=== PATIENT | female | born 1980 | race Caucasian/White ===

== ENCOUNTER → 2017-04-05 | Day surgery (SDC) | payer BC ==
[~2017-04-05] MED LIST: HYDROmorphone 0.5 MG/0.5 ML Syringe IVPUSH ONE; HYDROmorphone 0.5 MG/0.5 ML Syringe IVPUSH PRN; Ketorolac 30 MG/ML SDV ONE; Lactated Ringers 1,000 ML IV ONE; Lactated Ringers 1,000 ML ONE; Lidocaine 1% 6 ML ONE; Metoclopramide 10 MG/2 ML SDV IVPUSH ONE; Midazolam 1 MG/ML 2 ML SDV ONE; Ondansetron 4 MG/2 ML SDV IVPUSH PRN; Ondansetron 4 MG/2 ML SDV ONE; Propofol 200 MG/20 ML SDV ONE; Scopolamine 1.5 MG Transdermal Patch TRDERM ONE; Sodium Chloride 0.9% 1,000 ML IV SCH; Succinylcholine 200 MG/10 ML MDV ONE; ceFAZolin 2 GM in Premix Bag 1 BAG IV ONE; diphenhydrAMINE 50 MG/ML SDV IVPUSH PRN; fentaNYL 100 MCG/2 ML SDV IVPUSH PRN; fentaNYL 100 MCG/2 ML SDV ONE
--- NOTE | 2017-04-05 20:17 | EDM.PDOC ---
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 Seen Dr Ricky vasquez pm about 1630hrs. U/S revealed an intrauterine gestation with a low heart rate of 48? Since leaving the office the bleeding has increased agood deal and she believes she has passed some tissue and gestatinal sac? Has soaked a pad per hour for the last 3 hrs.with associated cramps --11/07. She is 5 P2. 2 previous miscarriages. No D&C`s. Started spotting per vagina 3 days ago.Heavier flow started about 1430 today. Onset: Today (Heavy flow per vagina started about 1430 today. ), Other (started spotting per vagina about 4 days ago. ) Onset Date: 04/05/17 Onset Time: 14:30 Duration: Hour(s): Location: Reports: Other (bleeding per vagina. ) Quality: Reports: Other (menstral cramps. ) Severity: Moderate Improves with: Reports: None Worsens with: Reports: None Context: Denies: Activity, Exercise, Lifting, Sick Contact, Trauma, Other Associated Symptoms: Reports: Malaise. 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 Prescribed a week ago, will continue to take after . Other Respiratory History: Pneumonia 2 weeks ago Other Genitourinary History: Kidney infection after gall bladder removal. Other OB/BYN History: x1 Other Musculoskeletal History: Rib on right side about 2 weeks ago Social & Family History - Tobacco Use Smoking Status *Q: Never Smoker - Recreational Drug Use Recreational Drug Use: No - Living Situation & Occupation Living situation: Reports: Occupation: Employed ED ROS GENERAL - Review of Systems Review Of Systems: See Below Constitutional: Denies: Fever, Chills, Malaise, Weakness, Fatigue, Decreased Appetite, Weight Loss HEENT: Reports: No Symptoms Respiratory: Reports: No Symptoms Cardiovascular: Reports: No Symptoms Endocrine: Reports: No Symptoms GI/Abdominal: Reports: Abdominal Pain (mentral cramps ) : Reports: Other ( heavy bleeding per vagina. ) Musculoskeletal: Reports: No Symptoms Skin: Reports: No Symptoms Neurological: Reports: No Symptoms Psychiatric: Reports: No Symptoms Hematologic/Lymphatic: Reports: No Symptoms Immunologic: Reports: No Symptoms ED EXAM - Physical Exam Exam: See Below Exam Limited By: No Limitations General Appearance: Alert, Anxious, Moderate Distress (in moderate pain 6/10 ) Eye Exam: Bilateral Eye: Normal Inspection Respiratory/Chest: No Respiratory Distress, Lungs Clear, Normal Breath Sounds, No Accessory Muscle Use, Chest Non-Tender Cardiovascular: Normal Peripheral Pulses, Regular Rate, Rhythm, No Edema, No Gallop, No Murmur, Tachycardia ( at rest. ) GI/Abdominal Exam: Normal Bowel Sounds, Soft, Non-Tender, No Organomegaly, No Abnormal Bruit, No Mass, Pelvis Stable, Other ( previous cholecystectomy. ) (Female) Exam: Cervical Dilatation Heart Tones: Not Young Back Exam: Normal Inspection, Full Range of Motion Extremities: Normal Inspection, Normal Range of Motion, Non-Tender, Normal Capillary Refill Neurological: Alert, Oriented, CN II-XII Intact, Normal Gait Psychiatric: Normal Affect, Normal Mood Skin Exam: Warm, Dry, Intact, Normal Color, No Rash Course - Vital Signs Last Recorded V/S: Last Vital Signs Temp 36.1 C 04/05/17 23:22 Pulse 108 H 04/05/17 23:22 Resp 18 04/05/17 23:22 BP 153/104 H 04/05/17 23:22 Pulse Ox 100 04/05/17 23:22 - Orders/Labs/Meds Orders: Active Orders 24 hr Category Date Time Status Admission Status [Patient Status] [ADT] Routine ADT 04/05/17 23:21 Ordered Antiembolic Devices [RC] PER UNIT ROUTINE Care 04/05/17 22:52 Active Verify Patient Consent Obtain [RC] ASDIRECTED Care 04/05/17 22:51 Active OB Transvaginal [US] Stat Exams 04/05/17 20:26 Taken Lactated Ringers [Ringers, Lactated] 1,000 ml Med 04/05/17 22:49 Active IV .BOLUS Remove Patch Med 04/08/17 23:15 Once 1 ea TRDERM ONETIME ONE Sodium Chloride 0.9% [Normal Saline] 1,000 ml Med 04/05/17 20:30 Active IV ASDIRECTED Schedule Procedure [COMM] Stat Oth 04/05/17 22:50 Ordered Sequential Compression Device [OM.PC] Routine Oth 04/05/17 22:52 Ordered Medication Orders Sodium Chloride (Normal Saline) 1,000 mls @ 150 mls/hr IV ASDIRECTED [facility] Last Admin: 04/05/17 20:56 Dose: 150 mls/hr Lactated Ringer's (Ringers, Lactated) 1,000 mls @ 999 mls/hr IV .BOLUS ONE Stop: 04/05/17 23:49 Last Admin: 04/05/17 22:55 Dose: 999 mls/hr Miscellaneous Information (Remove Patch) 1 ea TRDERM ONETIME ONE Stop: 04/08/17 23:16 Labs: Laboratory Tests 04/05/17 04/05/17 04/05/17 Range/Units 20:32 20:32 20:32 WBC 5.98 (3.98-10.04) K/mm3 RBC 4.96 (3.98-5.22) M/mm3 Hgb 14.3 (11.2-15.7) gm/L Hct 42.9 (34.1-44.9) % MCV 86.5 (79.4-94.8) fl MCH 28.8 (25.6-32.2) pg MCHC 33.3 (32.2-35.5) g/dl RDW Std Deviation 42.5 (36.4-46.3) fL Plt Count 227 (182-369) K/mm3 MPV 9.4 (9.4-12.3) fl Neutrophils % (Manual) 66 H (40-60) % Band Neutrophils % 0 (0-10) % Lymphocytes % (Manual) 31 (20-40) % Atypical Lymphs % 0 % Monocytes % (Manual) 3 (2-10) % Eosinophils % (Manual) 0 L (0.7-5.8) % Basophils % (Manual) 0 L (0.1-1.2) Platelet Estimate Adequate RBC Morph Comment Normal PT (8.0-13.0) SECONDS INR APTT (22-36) SECONDS Sodium 137 (136-145) mEq/L Potassium 3.6 (3.5-5.1) mEq/L Chloride 101 (98-107) mEq/L Carbon Dioxide 24 (21-32) mEq/L Anion Gap 15.6 H (5-15) BUN 13 (7-18) mg/dL Creatinine 0.9 (0.55-1.02) mg/dL Est Cr Clr Drug Dosing TNP Estimated GFR (MDRD) > 60 (>60) mL/min BUN/Creatinine Ratio 14.4 (14-18) Glucose 227 H (74-106) mg/dL Calcium 9.4 (8.5-10.1) mg/dL Total Bilirubin 0.5 (0.2-1.0) mg/dL AST 81 H (15-37) U/L ALT 129 H (14-59) U/L Alkaline Phosphatase 71 (46-116) U/L Total Protein 8.1 (6.4-8.2) g/dl Albumin 3.8 (3.4-5.0) g/dl Globulin 4.3 gm/dL Albumin/Globulin Ratio 0.9 L (1-2) HCG, Quant 67341.0 mIU/mL Blood Type A POSITIVE 04/05/17 Range/Units 20:32 WBC (3.98-10.04) K/mm3 RBC (3.98-5.22) M/mm3 Hgb (11.2-15.7) gm/L Hct (34.1-44.9) % MCV (79.4-94.8) fl MCH (25.6-32.2) pg MCHC (32.2-35.5) g/dl RDW Std Deviation (36.4-46.3) fL Plt Count (182-369) K/mm3 MPV (9.4-12.3) fl Neutrophils % (Manual) (40-60) % Band Neutrophils % (0-10) % Lymphocytes % (Manual) (20-40) % Atypical Lymphs % % Monocytes % (Manual) (2-10) % Eosinophils % (Manual) (0.7-5.8) % Basophils % (Manual) (0.1-1.2) Platelet Estimate RBC Morph Comment PT 10.5 (8.0-13.0) SECONDS INR 0.97 APTT 24 (22-36) SECONDS Sodium (136-145) mEq/L Potassium (3.5-5.1) mEq/L Chloride (98-107) mEq/L Carbon Dioxide (21-32) mEq/L Anion Gap (5-15) BUN (7-18) mg/dL Creatinine (0.55-1.02) mg/dL Est Cr Clr Drug Dosing Estimated GFR (MDRD) (>60) mL/min BUN/Creatinine Ratio (14-18) Glucose (74-106) mg/dL Calcium (8.5-10.1) mg/dL Total Bilirubin (0.2-1.0) mg/dL AST (15-37) U/L ALT (14-59) U/L Alkaline Phosphatase (46-116) U/L Total Protein (6.4-8.2) g/dl Albumin (3.4-5.0) g/dl Globulin gm/dL Albumin/Globulin Ratio (1-2) HCG, Quant mIU/mL Blood Type Meds: Medications Generic Name Dose Route Start Last Admin Trade Name Freq PRN Reason Stop Dose Admin Sodium Chloride 1,000 mls @ 150 mls/hr 04/05/17 20:30 04/05/17 20:56 Normal Saline IV 150 mls/hr ASDIRECTED NILDA Administration Lactated Ringer's 1,000 mls @ 999 mls/hr 04/05/17 22:49 04/05/17 22:55 Ringers, Lactated IV 04/05/17 23:49 999 mls/hr .BOLUS ONE Administration Miscellaneous Information 1 ea 04/08/17 23:15 Remove Patch TRDERM 04/08/17 23:16 ONETIME ONE Discontinued Medications Generic Name Dose Route Start Last Admin Trade Name Donavon PRN Reason Stop Dose Admin Hydromorphone HCl 0.5 mg 04/05/17 20:25 04/05/17 20:43 Dilaudid IVPUSH 04/05/17 20:26 0.5 mg ONETIME ONE Administration Cefazolin Sodium/Dextrose 2 gm 50 mls @ 100 mls/hr 04/05/17 22:52 04/05/17 23 :20 / Premix IV 04/05/17 23:21 100 mls/hr ONETIME ONE Administration Metoclopramide HCl 7.5 mg 04/05/17 20:25 04/05/17 20:44 Reglan IVPUSH 04/05/17 20:26 7.5 mg ONETIME ONE Administration Scopolamine 1.5 mg 04/05/17 23:15 Transderm-Scop TRDERM 04/05/17 23:16 ONETIME ONE - Radiology Interpretation Free Text/Narrative:: 36 year old female presents to the ED with heavy vaginal bleeding --known to be 6 weeks gestation. Seen in clinic earlier this pm.and identified to have an intrauterine with a very low heart rate of 48. Since leaving the clinic flow has increased with suspect passage of tissue and perhaps a gestational sac. Soaking a pad per hr for the last three consecutive hours. Associated cramping. last ate at 1300hrs today. Plan: transvaginal U/S to see if any tissue remains plus labs to check HCG levels and clotting times and blood type and screen. - Re-Assessments/Exams Free Text/Narrative Re-Assessment/Exam: 04/05/17 22:17a Labs reveal a white count of 5.98 with a normal neutrophil count at 66% and no bands. Hemoglobin is 14.3 hematocrit of 42.9. PT is 10.5 INR 0.97 PTT is 24. Sodium 137 potassium 3.6. Chloride 101 bicarbonate 24. And a gap is 15.6. B1 is 13 creatinine is 0.9. GFR is greater than 60. Glucose is elevated at 227. This is suspicious that she may be a type II diabetic. AST is 81 . ALT is 129. HCG quantitative is 10,870. Blood type is A+. She is change pads twice since she been in the ED. This means that she soaked a pad per hour for 4 consecutive hours. The transabdominal ultrasound revealed a crenated glob in the intrauterine cavity which did not resemble any Citroma the gestational sac and there certainly no evidence of heart beat. This indicates an incomplete miscarriage. Therefore discussed case with validation consultant content designer Dr. Clark and he will see the patient in the ED with a view to possible D&C. Her coags are normal at this time. However I have a suspicion she is not coagulating normally.. 04/05/17 23:00: Dr. Clark has seen her in consultation with the view to take her to the OR for a D&C. Is there is still tissue in the cervical canal. 04/05/17 23:24 04/05/17 23:24 Departure - Departure Time of Disposition: 23:23 Disposition: DC/Tfer to [facility] Access [facility] Condition: Fair Clinical Impression: Incomplete - Discharge Information - My Orders Last 24 Hours: My Active Orders 04/05/17 20:26 OB Transvaginal [US] Stat 04/05/17 20:30 Sodium Chloride 0.9% [Normal Saline] 1,000 ml IV ASDIRECTED 04/05/17 23:21 Admission Status [Patient Status] [ADT] Routine - Assessment/Plan Last 24 Hours: My Active Orders 04/05/17 20:26 OB Transvaginal [US] Stat 04/05/17 20:30 Sodium Chloride 0.9% [Normal Saline] 1,000 ml IV ASDIRECTED 04/05/17 23:21 Admission Status [Patient Status] [ADT] Routine
--- NOTE | 2017-04-05 23:03 | PCM.LDHP ---
L&D History of Present Illness - General Date of Service: 04/05/17 Admit Problem/Dx: Admission Diagnosis/Problem Admission Diagnosis/Problem 04/05/17 22:55 36-year-old 5 para 1132 with significant vaginal bleeding and incomplete spontaneous miscarriage Source of Information: Patient History Limitations: Reports: No Limitations - History of Present Illness Introduction:: Rina is a 36-year-old 5 para 1132 white female whose been seen over the last week in clinic per Dr. Jose Antonio Rivera. She's been followed closely and has had now for ultrasounds for evaluation of the and recently bleeding in . Ultrasound earlier today showed an intrauterine gestation with a heartbeat in the 49 bpm range. Shortly thereafter patient began bleeding rather heavily, called one of the nursees from the clinic for advice and was told come into the emergency room. She was seen by Dr. Brown at which time she was having significant clot passage and active bleeding. My evaluation shows what appears to be dilated cervix with tissue protruding from the cervix on digital exam. Moderate amount of blood in the vagina and on the pad. Cramping at the present time. His consistent with an incomplete miscarriage. Ultrasound performed this evening shows no normal gestational sac within the uterus. This could reflect an incomplete or sooner gestational reaction of ectopic . There is small amount of free fluid which is physiologic in nature. No adnexal masses are noted. Patient does not have any significant adnexal pain only cramping pain. MANAGER BODY history 5 para 1132 with 3 spontaneous abortions including the present 1 along with one delivery induced because of preeclampsia at 36 weeks and one full-term delivery. Last menstrual is uncertain. She is dated with this by an ultrasound last week which places her at 6-5/7 weeks today. Results sounds are shown heartbeat today's 49 BPM. SOME BLEEDING WAS NOTED ON EVALUATION TODAY. NO STDS NOTED IN THE PAST. PAST MEDICAL HISTORY: 1. NORMAL SPONTANEOUS VAGINAL DELIVERY 2 2. SPONTANEOUS 3 3. PREECLAMPSIA WITH FIRST . 4. HYPERTENSION ON ATENOLOL PAST SURGICAL HISTORY: 1. LAPAROSCOPIC CHOLECYSTECTOMY 2. SURGERY TO REMOVE AN "extra bone" Allergies: Some type of hypertension medication that she does not remember Medications: 1. Atenolol daily 2. vitamins daily Family history: mother is alive but had delivered a baby with heart defect that . She has MS, diabetes, high blood pressure, heart disease. Father is alive and well but smokes and drinks in excess. 3 sisters 2 with lupus and 1 with celiac disease. No brothers. No anesthesia or bleeding or blood clotting problems noted in the family. 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 Denies any significant loss of alcohol, drugs or tobacco. Review of systems: In general patient is anxious about the bleeding and is feeling cramping. Skin: Negative Lungs: No infectious symptoms or shortness of breath Cardiovascular: No exercise intolerance or chest pain Breasts: Negative. GI: Negative : Bleeding vaginally and cramping like menstrual cramps. Passage of tissue and possibly . Patient reports some clear tissue passed earlier. Extremities: Negative Neurological system: Negative Physical exam: Vital signs are stable. Patient is afebrile. Skin is warm dry without lesions. HEENT, neck and back within normal limits Lungs are clear with good breath sounds in all lung flores. Cardiovascular exam shows regular rate and rhythm without murmurs. Breast exam is deferred. Abdomen is obese, soft, nontender with positive bowel sounds noted. No significant pain is noted on exam. No inguinal lymphadenopathy or hernias are noted. Genital exam. Bimanual shows blood on pad below the patient approximately 30 40 mL, blood in the vaginal vault and on bimanual exam palpated is tissue in the cervical os. Most probably products of conception. Hard to determine patient's uterine size because of body habitus. Extremities and neurological exam is grossly within normal limits. Pain Score: 6 - Related Data Allergies/Adverse Reactions: Allergies Allergy/AdvReac Type Severity Reaction Status Date / Time No Known Allergies Allergy Verified 04/05/17 20:21 Home Medications: Home Meds Aspirin [Halfprin] 1 tab PO DAILY 04/05/17 [History] Atenolol [Atenolol] 1 tab PO DAILY 04/05/17 [History] Cetirizine [ZyrTEC] 1 tab PO DAILY 04/05/17 [History] Folic Acid 1 tab PO DAILY 04/05/17 [History] metFORMIN HCl [Metformin HCl] 1 tab PO DAILY 04/05/17 [History] Past Medical History Cardiovascular History: Reports: Hypertension Other Cardiovascular History: High during preganancy. Prescribed a week ago, will continue to take after . Other Respiratory History: Pneumonia 2 weeks ago Other Genitourinary History: Kidney infection after gall bladder removal. MANAGER BODY History: Reports: Dysfunctional Uterine Bleeding, Other OB/BYN History: x1 Musculoskeletal History: Reports: Fracture Other Musculoskeletal History: Rib on right side about 2 weeks ago - Past Surgical History Other Neurological Surgeries/Procedures: "set block in back where they numbed my nerve." Other Musculoskeletal Surgeries/Procedures:: ankle surgery Social & Family History - Family History Family Medical History: Noncontributory - Tobacco Use Smoking Status *Q: Never Smoker - Recreational Drug Use Recreational Drug Use: No - Living Situation & Occupation Living situation: Reports: Occupation: Employed H&P Review of Systems - Review of Systems: Review Of Systems: See Below L&D Exam - Exam Exam: See Below - Vital Signs Vital Signs: Last Vital Signs Temp 36.1 C 04/05/17 20:15 Pulse 108 H 04/05/17 20:15 Resp 18 04/05/17 20:15 BP 153/104 H 04/05/17 20:15 Pulse Ox 100 04/05/17 20:15 - OB Specific Heart Tones: Not Elliott - Patient Data Lab Results Last 24 hrs: Laboratory Results - last 24 hr 04/05/17 04/05/17 04/05/17 Range/Units 20:32 20:32 20:32 WBC 5.98 (3.98-10.04) K/mm3 RBC 4.96 (3.98-5.22) M/mm3 Hgb 14.3 (11.2-15.7) gm/L Hct 42.9 (34.1-44.9) % MCV 86.5 (79.4-94.8) fl MCH 28.8 (25.6-32.2) pg MCHC 33.3 (32.2-35.5) g/dl RDW Std Deviation 42.5 (36.4-46.3) fL Plt Count 227 (182-369) K/mm3 MPV 9.4 (9.4-12.3) fl Neutrophils % (Manual) 66 H (40-60) % Band Neutrophils % 0 (0-10) % Lymphocytes % (Manual) 31 (20-40) % Atypical Lymphs % 0 % Monocytes % (Manual) 3 (2-10) % Eosinophils % (Manual) 0 L (0.7-5.8) % Basophils % (Manual) 0 L (0.1-1.2) Platelet Estimate Adequate RBC Morph Comment Normal PT (8.0-13.0) SECONDS INR APTT (22-36) SECONDS Sodium 137 (136-145) mEq/L Potassium 3.6 (3.5-5.1) mEq/L Chloride 101 (98-107) mEq/L Carbon Dioxide 24 (21-32) mEq/L Anion Gap 15.6 H (5-15) BUN 13 (7-18) mg/dL Creatinine 0.9 (0.55-1.02) mg/dL Est Cr Clr Drug Dosing TNP Estimated GFR (MDRD) > 60 (>60) mL/min BUN/Creatinine Ratio 14.4 (14-18) Glucose 227 H (74-106) mg/dL Calcium 9.4 (8.5-10.1) mg/dL Total Bilirubin 0.5 (0.2-1.0) mg/dL AST 81 H (15-37) U/L ALT 129 H (14-59) U/L Alkaline Phosphatase 71 (46-116) U/L Total Protein 8.1 (6.4-8.2) g/dl Albumin 3.8 (3.4-5.0) g/dl Globulin 4.3 gm/dL Albumin/Globulin Ratio 0.9 L (1-2) HCG, Quant 96226.0 mIU/mL Blood Type A POSITIVE 04/05/17 Range/Units 20:32 WBC (3.98-10.04) K/mm3 RBC (3.98-5.22) M/mm3 Hgb (11.2-15.7) gm/L Hct (34.1-44.9) % MCV (79.4-94.8) fl MCH (25.6-32.2) pg MCHC (32.2-35.5) g/dl RDW Std Deviation (36.4-46.3) fL Plt Count (182-369) K/mm3 MPV (9.4-12.3) fl Neutrophils % (Manual) (40-60) % Band Neutrophils % (0-10) % Lymphocytes % (Manual) (20-40) % Atypical Lymphs % % Monocytes % (Manual) (2-10) % Eosinophils % (Manual) (0.7-5.8) % Basophils % (Manual) (0.1-1.2) Platelet Estimate RBC Morph Comment PT 10.5 (8.0-13.0) SECONDS INR 0.97 APTT 24 (22-36) SECONDS Sodium (136-145) mEq/L Potassium (3.5-5.1) mEq/L Chloride (98-107) mEq/L Carbon Dioxide (21-32) mEq/L Anion Gap (5-15) BUN (7-18) mg/dL Creatinine (0.55-1.02) mg/dL Est Cr Clr Drug Dosing Estimated GFR (MDRD) (>60) mL/min BUN/Creatinine Ratio (14-18) Glucose (74-106) mg/dL Calcium (8.5-10.1) mg/dL Total Bilirubin (0.2-1.0) mg/dL AST (15-37) U/L ALT (14-59) U/L Alkaline Phosphatase (46-116) U/L Total Protein (6.4-8.2) g/dl Albumin (3.4-5.0) g/dl Globulin gm/dL Albumin/Globulin Ratio (1-2) HCG, Quant mIU/mL Blood Type Result Diagrams: 04/05/17 20:32 04/05/17 20:32 Problem List Initiated/Reviewed/Updated: Yes Orders Last 24hrs: Active Orders 24 hr Category Date Time Status Antiembolic Devices [RC] PER UNIT ROUTINE Care 04/05/17 22:52 Ordered Verify Patient Consent Obtain [RC] ASDIRECTED Care 04/05/17 22:51 Ordered OB Transvaginal [US] Stat Exams 04/05/17 20:26 Taken Lactated Ringers [Ringers, Lactated] 1,000 ml Med 04/05/17 22:49 Active IV .BOLUS Sodium Chloride 0.9% [Normal Saline] 1,000 ml Med 04/05/17 20:30 Active IV ASDIRECTED ceFAZolin [Ancef] 2 gm Med 04/05/17 22:52 Ordered Premix Bag 1 bag IV ONETIME Schedule Procedure [COMM] Stat Oth 04/05/17 22:50 Ordered Sequential Compression Device [OM.PC] Routine Oth 04/05/17 22:52 Ordered Medication Orders Sodium Chloride (Normal Saline) 1,000 mls @ 150 mls/hr IV ASDIRECTED [facility] Last Admin: 04/05/17 20:56 Dose: 150 mls/hr Lactated Ringer's (Ringers, Lactated) 1,000 mls @ 999 mls/hr IV .BOLUS ONE Stop: 04/05/17 23:49 Cefazolin Sodium/Dextrose 2 gm (/ Premix) 50 mls @ 100 mls/hr IV ONETIME ONE Stop: 04/05/17 23:21 Assessment/Plan Comment:: Laboratory testing shows hemoglobin 14.3, hematocrit 42.9, white count 5.98, platelets 227. PT is normal at 10.5. INR is normal at 0.97. CO2 is 24. Potassium is 3.6. Sodium is 137. Chloride is 101. Glucose is 227. AST is elevated at 81. LT is elevated at 129. Assessment: 1. 6-6/7 week intrauterine with significant bleeding and findings consistent with incomplete miscarriage 2. Hypertension on atenolol 3. Blood is A+ Plan: 1. Dilation and suction curettage-procedure, risks, benefits, alternatives of care including use of Cytotec to enhance the possibility of passage of tissue all discussed with patient. She appears to understand and wishes to proceed with dilation and suction curettage. 2. SCDs 3. Ancef 2 g IV preop.
--- NOTE | 2017-04-05 23:07 | PCM.PREANE ---
Preanesthetic Assessment - Anesthesia/Transfusion/Family Hx Anesthesia History: Prior Anesthesia Without Reaction Type of Anesthesia Reaction: Excessive Nausea/Vomiting Family History of Anesthesia Reaction: No Transfusion History: No Prior Transfusion(s) Intubation History: Unknown - Review of Systems General: Fatigue, Appetite Pulmonary: No Symptoms Cardiovascular: No Symptoms (HTN), Lightheadedness Gastrointestinal: No Symptoms (GERD), Diarrhea, Nausea Neurological: No Symptoms (motion sickness) Other: Reports: Diabetes (Type II newly diagnosed), Sinus Problem (seasonal allergies) - Physical Assessment NPO Status Date: 04/05/17 NPO Status Time: 13:00 Pulse: 108 O2 Sat by Pulse Oximetry: 100 Respiratory Rate: 18 Blood Pressure: 153/104 Temperature: 36.1 C Vital Signs: Last Vital Signs Temp 36.1 C 04/05/17 20:15 Pulse 108 H 04/05/17 20:15 Resp 18 04/05/17 20:15 BP 153/104 H 04/05/17 20:15 Pulse Ox 100 04/05/17 20:15 Height: 1.6 m Weight: 117.934 kg ASA Class: 2E Mental Status: Alert & Oriented x3 Airway Class: Mallampati = 2 Dentition: Reports: Normal Dentition, Caries Thyro-Mental Finger Breadths: 3 Mouth Opening Finger Breadths: 3 ROM/Head Extension: Full Lungs: Clear to Auscultation, Normal Respiratory Effort Cardiovascular: Regular Rate, Regular Rhythm, No Murmurs - Lab Values: Laboratory Last Values WBC 5.98 K/mm3 (3.98-10.04) 04/05/17 20:32 RBC 4.96 M/mm3 (3.98-5.22) 04/05/17 20:32 Hgb 14.3 gm/L (11.2-15.7) 04/05/17 20:32 Hct 42.9 % (34.1-44.9) 04/05/17 20:32 MCV 86.5 fl (79.4-94.8) 04/05/17 20:32 MCH 28.8 pg (25.6-32.2) 04/05/17 20:32 MCHC 33.3 g/dl (32.2-35.5) 04/05/17 20:32 RDW Std Deviation 42.5 fL (36.4-46.3) 04/05/17 20:32 Plt Count 227 K/mm3 (182-369) 04/05/17 20:32 MPV 9.4 fl (9.4-12.3) 04/05/17 20:32 Neutrophils % (Manual) 66 % (40-60) H 04/05/17 20:32 Band Neutrophils % 0 % (0-10) 04/05/17 20:32 Lymphocytes % (Manual) 31 % (20-40) 04/05/17 20:32 Atypical Lymphs % 0 % 04/05/17 20:32 Monocytes % (Manual) 3 % (2-10) 04/05/17 20:32 Eosinophils % (Manual) 0 % (0.7-5.8) L 04/05/17 20:32 Basophils % (Manual) 0 (0.1-1.2) L 04/05/17 20:32 Platelet Estimate Adequate 04/05/17 20:32 RBC Morph Comment Normal 04/05/17 20:32 PT 10.5 SECONDS (8.0-13.0) 04/05/17 20:32 INR 0.97 04/05/17 20:32 APTT 24 SECONDS (22-36) 04/05/17 20:32 Sodium 137 mEq/L (136-145) 04/05/17 20:32 Potassium 3.6 mEq/L (3.5-5.1) 04/05/17 20:32 Chloride 101 mEq/L (98-107) 04/05/17 20:32 Carbon Dioxide 24 mEq/L (21-32) 04/05/17 20:32 Anion Gap 15.6 (5-15) H 04/05/17 20:32 BUN 13 mg/dL (7-18) 04/05/17 20:32 Creatinine 0.9 mg/dL (0.55-1.02) 04/05/17 20:32 Est Cr Clr Drug Dosing TNP 04/05/17 20:32 Estimated GFR (MDRD) > 60 mL/min (>60) 04/05/17 20:32 BUN/Creatinine Ratio 14.4 (14-18) 04/05/17 20:32 Glucose 227 mg/dL (74-106) H 04/05/17 20:32 Calcium 9.4 mg/dL (8.5-10.1) 04/05/17 20:32 Total Bilirubin 0.5 mg/dL (0.2-1.0) 04/05/17 20:32 AST 81 U/L (15-37) H 04/05/17 20:32 ALT 129 U/L (14-59) H 04/05/17 20:32 Alkaline Phosphatase 71 U/L (46-116) 04/05/17 20:32 Total Protein 8.1 g/dl (6.4-8.2) 04/05/17 20:32 Albumin 3.8 g/dl (3.4-5.0) 04/05/17 20:32 Globulin 4.3 gm/dL 04/05/17 20:32 Albumin/Globulin Ratio 0.9 (1-2) L 04/05/17 20:32 HCG, Quant 30872.0 mIU/mL 04/05/17 20:32 Blood Type A POSITIVE 04/05/17 20:32 Above lab values noted and reviewed and within acceptable ranges to proceed with scheduled procedure. - Allergies Allergies/Adverse Reactions: Allergies Allergy/AdvReac Type Severity Reaction Status Date / Time No Known Allergies Allergy Verified 04/05/17 20:21 - Anesthesia Plan Pre-Op Medication Ordered: Beta Kareem Beta Kareem: Atenolol Med Last Dose Date: 04/04/17 Med Last Dose Time: 23:30 - Acknowledgements Anesthesia Type Planned: General Anesthesia Pt an Appropriate Candidate for the Planned Anesthesia: Yes Alternatives and Risks of Anesthesia Discussed w Pt/Guardian: Yes Pt/Guardian Understands and Agrees with Anesthesia Plan: Yes PreAnesthesia Questionnaire Cardiovascular History: Reports: Hypertension Other Cardiovascular History: High during preganancy. Prescribed a week ago, will continue to take after . Other Respiratory History: Pneumonia 2 weeks ago Other Genitourinary History: Kidney infection after gall bladder removal. PATIENT CARE MANAGER History: Reports: Dysfunctional Uterine Bleeding, Other OB/BYN History: x1 Musculoskeletal History: Reports: Fracture Other Musculoskeletal History: Rib on right side about 2 weeks ago - Past Surgical History Other Neurological Surgeries/Procedures: "set block in back where they numbed my nerve." Other Musculoskeletal Surgeries/Procedures:: ankle surgery - SUBSTANCE USE Smoking Status *Q: Never Smoker Recreational Drug Use History: No - HOME MEDS Home Medications: Home Meds Aspirin [Halfprin] 1 tab PO DAILY 04/05/17 [History] Atenolol [Atenolol] 1 tab PO DAILY 04/05/17 [History] Cetirizine [ZyrTEC] 1 tab PO DAILY 04/05/17 [History] Folic Acid 1 tab PO DAILY 04/05/17 [History] metFORMIN HCl [Metformin HCl] 1 tab PO DAILY 04/05/17 [History] - CURRENT (IN HOUSE) MEDS Current Meds: Current Medications Sodium Chloride (Normal Saline) 1,000 mls @ 150 mls/hr IV ASDIRECTED [facility] Last Admin: 04/05/17 20:56 Dose: 150 mls/hr Lactated Ringer's (Ringers, Lactated) 1,000 mls @ 999 mls/hr IV .BOLUS ONE Stop: 04/05/17 23:49 Last Admin: 04/05/17 22:55 Dose: 999 mls/hr Cefazolin Sodium/Dextrose 2 gm (/ Premix) 50 mls @ 100 mls/hr IV ONETIME ONE Stop: 04/05/17 23:21 Discontinued Medications Hydromorphone HCl (Dilaudid) 0.5 mg IVPUSH ONETIME ONE Stop: 04/05/17 20:26 Last Admin: 04/05/17 20:43 Dose: 0.5 mg Metoclopramide HCl (Reglan) 7.5 mg IVPUSH ONETIME ONE Stop: 04/05/17 20:26 Last Admin: 04/05/17 20:44 Dose: 7.5 mg
--- NOTE | 2017-04-06 00:20 | PCM.OPNOTE ---
- General Post-Op/Procedure Note Date of Surgery/Procedure: 04/06/17 Operative Procedure(s): Dilation and suction curettage Findings: Tissue present within the endocervical canal and endometrial canal consistent with products of conception. Findings consistent with incomplete spontaneous . Pre Op Diagnosis: Incomplete spontaneous Post-Op Diagnosis: Same Anesthesia Technique: General ET Tube Primary Surgeon: Addison Clark Fluid Replacement, Intraop: 800 EBL in mLs: 25 Complications: None Condition: Good Free Text/Narrative:: Surgery duration: 2 minutes Procedure: The patient was taken to the operating room and placed in a supine position operating table. She received 2 g of Ancef preoperatively for infection prophylaxis and had sequential compression stockings in place for DVT prophylaxis. After adequate general anesthesia patient was intubated and was then placed in a dorsal lithotomy position. A weighted speculum was placed in the vagina. Cervix is found to be dilated to approximately 1+ centimeters. There was tissue protruding from the external cervical os consistent with products of conception. These were teased out of the cervix and sent with the remainder of the specimen. Uterus was sounded to approximately 8 cm. It was found to be anterior and mid position. An 11 mm suction curette was then introduced in routine fashion the endometrial cavity was evacuated. Moderate amount tissue was obtained. Findings consistent with products of conception. A medium size sharp curet was introduced and very careful fashion the endometrial cavity was curetted. His 5 be clear of any further tissue. The suction curet was then reintroduced and small and blood was removed. No further tissue was removed. This point the D&C was discontinued. The single-toothed tenaculum used to stabilize the anterior lip the cervix was removed. Blood was removed from the vagina with a stick sponge and the weighted speculum was removed from the vagina. The patient was awakened from general endotracheal anesthesia. The patient was discharged from the operating room in good condition.
--- NOTE | 2017-04-06 00:23 | PCM.POSTAN ---
POST ANESTHESIA ASSESSMENT - MENTAL STATUS Mental Status: Alert - VITAL SIGNS Pulse Rate: 95 SaO2: 97 Resp Rate: 18 Blood Pressure: 127/78 Temperature: 36.3 C - RESPIRATORY Respiratory Status: Respiratory Rate WNL, Airway Patent, O2 Saturation Stable, Supplemental Oxygen - CARDIOVASCULAR CV Status: Pulse Rate WNL, Blood Pressure Stable - GASTROINTESTINAL GI Status: No Symptoms - POST OP HYDRATION Hydration Status: Adequate & Stable
--- NOTE | 2017-04-06 07:46 | US ---
First trimester obstetrical ultrasound: Multiple real-time images were obtained transvaginally. No intrauterine gestational sac is seen. Endometrial thickness measures 1.4 cm with endometrium appearing heterogeneous in appearance. Small amount of free fluid seen which is physiologic. No adnexal abnormalities are seen. Impression: 1. Heterogeneous appearing endometrium. No normal gestational sac is seen at this time. Findings could represent early that is not yet seen or represent early miscarriage. Please correlate with beta hCGs. If beta hCGs continue to increase, recommend repeat study in 11 days. Diagnostic code #3 Agree with preliminary report issued by [facility] ([facility] preliminary report dictated on 04/05/17, 10:56 PM Central Time)
[2017-04-06 09:16] VITALS: BP 129/75
--- NOTE | 2017-04-06 11:03 | PCM48HPAN ---
Post Anesthesia Note - EVALUATION WITHIN 48HRS OF ANESTHETIC Vital Signs in Normal Range: Yes Patient Participated in Evaluation: No (Patient discharged prior to assessment ) Respiratory Function Stable: Yes Airway Patent: Yes Cardiovascular Function Stable: Yes Hydration Status Stable: Yes Pain Control Satisfactory: Yes Nausea and Vomiting Control Satisfactory: Yes Mental Status Recovered: Yes
== END | disposition home or self-care (01) ==
LOC: JD.ED 19:47 → JD.SDS 22:47
PROVIDERS: ATTEND Obstetrics & Gynecology
DX: O03.4 Incomplete spontaneous abortion without complication (principal); I10 Essential (primary) hypertension; E11.9 Type 2 diabetes mellitus without complications; Z90.49 Acquired absence of other specified parts of digestive tract; Z98.890 Other specified postprocedural states; Z88.8 Allergy status to other drugs, medicaments and biological substances; Z79.82 Long term (current) use of aspirin; Z79.84 Long term (current) use of oral hypoglycemic drugs; Z79.899 Other long term (current) drug therapy; Z87.01 Personal history of pneumonia (recurrent)
CPT/HCPCS: 36415; 59812; 76817; 80053; 84702; 85025; 85610; 85730; 86900; 86901; 96361; 96374; 96375; 99285; A9270; J0330; J0690; J1170; J1885; J2405; J2765; J7040; J7120; 01965; 99284; J2704